=== PATIENT | female | born 1965 | race Caucasian/White ===

== ENCOUNTER 2018-04-05 02:10 | Inpatient (IN) | payer MEDICARE ==
[~2018-04-05] VITALS: Ht 147.3 cm
--- NOTE | ~2018-04-05 | CN ---
PATIENT NAME:JARED PETERSON MEDICAL RECORD: [id number] : 67 LOCATION:[id number] ADMIT DATE: 04/05/18 ACCOUNT: [id number] CONSULTING PHYSICIAN: MARY GATICA MD REFERRING PHYSICIAN: KIMANI GRESHAM MD DATE OF CONSULTATION: 04/07/2018 CONSULT REQUESTING PHYSICIAN: Kimani Gresham MD REASON FOR CONSULTATION: Vent management and septic shock. HISTORY OF PRESENT ILLNESS: Ms. Peterson is a 52-year-old female who underwent an exploratory laparotomy, ureterostomy, and stent placement and reduction of the incarcerated hernia. Now, the patient is orally intubated and sedated. She is hypotensive. She required 2 pressors. The history was taken mainly by reviewing the patient's note and talking to Dr. Gresham. REVIEW OF SYSTEMS: The detail is not obtainable. PAST MEDICAL HISTORY: 1. Seizure disorder. 2. Mental disability. 3. Spina bifida. 4. Hypertension. 5. Pressure sore stage 2-3 in the buttocks. 6. Depression. PAST SURGICAL HISTORY: She has ureterostomy and cystoscopy in the past. ALLERGIES: SHE IS ALLERGIC TO PENICILLIN. MEDICATIONS: She is on gentamicin IV, Flagyl IV, Levaquin IV, vancomycin IV. PERSONAL AND SOCIAL HISTORY: The patient is a nonsmoker, nondrinker. FAMILY HISTORY: Noncontributory. PHYSICAL EXAMINATION: GENERAL: Now, the patient is orally intubated and sedated. VITAL SIGNS: The blood pressure is 64-100/58, pulse is 75, respiration is 10, temperature 99.3, SpO2 98%. She is on assist control mechanical ventilation. HEENT: Conjunctivae are pink. Sclerae are not icteric. NECK: Supple, no JVD. CHEST: There is no wheeze. There are crackles at the left base. HEART: Rhythm regular, normal sound, no murmur. ABDOMEN: Not distended. It is tender on palpation. There is a drainage tube in place in incision. EXTREMITIES: No cyanosis, no clubbing and 1+ pedal edema. CENTRAL NERVOUS SYSTEM: The patient is orally intubated and sedated. LABORATORY DATA: CBC: The WBC is 23.4, hemoglobin 10.8, hematocrit is 34.9, the platelet count 416. Chemistry: Sodium is 154, potassium is 3.7, chloride 122, BUN is 24, creatinine 0.8. CHEST RADIOGRAPH: There is an infiltrate in the left lower lobe. There is also CONSULT REPORT [id number] JARED PETERSON a left-sided pleural effusion. IMPRESSION: 1. Acute hypoxic respiratory failure post-procedure. 2. Status post exploratory laparotomy, partial colectomy, reduction of the incarcerated hernia, ureterostomy, and stent placement. 3. Ileal conduit. 4. Septic shock. 5. Leukocytosis. 6. Left lower lobe pneumonia. 7. Left pleural effusion. 8. Hypernatremia. 9. Spina bifida. 10. Seizure disorder. RECOMMENDATION: 1. Continue the present pressors. We will add sil if the patient is still hypotensive. 2. IV fluid boluses. 3. Continue present antibiotic, vancomycin, gentamicin, Flagyl, and Levaquin. 4. DVT and GI prophylaxis. 5. Follow up labs and chest radiograph. Discussed with RN and RT. 6. Discussed with Dr. Gresham. The prognosis is guarded. The critical care time is 55 minutes. TRANSINT:[id number] Voice Confirmation ID: [id number] DOCUMENT ID: [id number] MARY GATICA MD at 1712 CC: [id number] DICTATION DATE: 04/07/18 1317 CRANE HOOKER: 04/07/18 1517 DIS IN 04/16/18 [place] [id number] [place] [address]
--- NOTE | ~2018-04-05 | MORECARE ---
CASE MANAGEMENT DISCHARGE SUMMARY PATIENT: JARED CHRISTIAN UNIT: [id number] ADM DATE: 04/05/18 AGE: 52 : 67 SEX: F ROOM/BED: D.2214 AUTHOR: MARIA A JOSHI PHYSICIAN: REFERRING PHYSICIAN: FLORIDALMA CONOEY MD DATE OF SERVICE: 04/05/18 Discharge Plan Patient Name: JARED CHRISTIAN Facility: [facility]:[place] : 1965 Planned Disposition: Anticipated Discharge Date: Discharge Date: Expected LOS: Initial Reviewer: [email or web address] Initial Review Date: 04/05/2018 Generated: 04/05/18 5:57 pm Patient Name: JARED CHRISTIAN Page [id number] at 1658 All edits/amendments must be made on the electronic document DICTATION DATE: 04/05/181656 [place] OPERATOR: ERIC 04/05/181656 RPT#: [id number] DC DATE: STATUS: ADM IN [facility] [address] [place] [address] END OF REPORT
--- NOTE | ~2018-04-05 | OP ---
PATIENT NAME: JARED CHRISTIAN MEDICAL RECORD: [id number] :67 LOCATION: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 PROCEDURES: 1. Exploratory laparotomy, lysis of adhesions. 2. Reduction of bowel incarceration with resection of sigmoid colon and creation of an end colostomy. 3. Repair of parastomal hernia. 4. Excision of previous ileal conduit. 5. Creation of a new ileal conduit with placement of bilateral ureteral stents. 6. Debridement of the buttocks decubitus ulcer. FINDINGS: Parastomal hernia with incarceration and necrosis of the sigmoid colon to the hernia, also the ileal conduit had necrosis due to obstruction of the blood supply. Sacral decubitus ulcer in the buttocks times 3, stage IV. BLOOD LOSS: Less than 100 mL. CLINICAL HISTORY: This is a 52-year-old female, who lives in a mcc in [place]. She has spina bifida, mental retardation and seizure disorder. She is sent by her mcc to this hospital because of anuria. When I saw the patient, I asked for a CT scan of the abdomen and pelvis as it was not entirely clear to me what her anatomy was internally. When I examined the patient, she had a necrotic-appearing ileostomy stoma. I called Dr. Cobb with concerns regarding bowel. The patient had been eating during her hospital stay. We examined the CT together, it was evident that she had incarceration of a loop of colon through the parastomal hernia and this colon incarceration was causing a large bowel obstruction. Also seemed that the incarcerated bowel is compressing on the ileal conduit. The patient had a very distended abdomen with minimal bowel sounds. However, she does not have any acute peritonitis. In fact, she was singing songs and generally not in any great degree of pain. Her blood work was terrible. She had a very high white blood cell count in the 25 range. Her creatinine was normal. Her lactate was elevated. Nevertheless, because of our suspicions that she had incarcerated and probably bowel in the abdomen, she needs to have an exploratory laparotomy and resection of any bowel. She cannot give consent because she is not mentally competent. Her brother who has power of assistant prosecuting attorney drove up from [place]. He gave consent for the surgery. She is DNR in the mcc. The brother signed DNR papers here and he also asked for a DNR in the operating room if necessary. DESCRIPTION OF PROCEDURE: The patient was first placed in the OR in supine position. I examined her while she was in supine position. I noticed that she has some decubitus ulcers. We would address this at the end of the case. She is very small in stature and has a very short neck. She was a difficult OPERATIVE REPORT [id number] JARED CHRISTIAN for anesthesia. Once induced, she needed to be on a Levophed drip in order to maintain her blood pressure. On the floor, her heart rate had been 140 and her blood pressure was in the low normal range. This was consistent with sepsis. Also, Dr. Cobb inserted a right subclavian central line into the patient. An art-line was placed by anesthesia. The patient was then prepped and draped. An Ioban drape was placed over the abdomen. We reentered her previous incision, which is in the midline. We then went down through the adhesions and into the peritoneal cavity. We had difficulty identifying the ileal conduit. We finally saw a structure that was dark and appeared to have a very thin bowel wall. I placed a red rubber catheter into the ileal conduit and we identified this as the ileal conduit. Adjacent to it was a loop of bowel, which was going through the parastomal hernia. Multiple adhesions had already formed here, indicating that this herniation and incarceration is chronic. These adhesions were all taken down. Finally, we were able to completely reduce the incarceration and the entrapped sigmoid colon was brought back into the abdominal cavity. We found that the bowel was . We decided to resect the necrotic sigmoid colon. The mesentery was ligated serially. We then used the Endo-JAS 75 stapler with blue staple loades, then resected the colon. The specimen was sent off to pathology. We kept the proximal end of the colon closed for the time being until we decided what to do with the ileal conduit. We then excised the stoma of the ileal conduit by doing a circumscribing incision using the Bovie around the stoma. We dissected around the ileal conduit in the subcutaneous tissues down to the fascia. All of the ileal conduit was necrotic. We could not find any viable ileal conduit. We excised the ileal conduit where it passed through the fascia. This allowed us to see the big opening for the parastomal hernia. The ileal conduit was then brought into the abdominal cavity. We followed it down and we identified the 2 ureters. The 2 ureters were marked individually with 2-0 polypropylene sutures. The 2 ureters were then excised using Encinas scissors where they were anastomosed on to the necrotic ileal conduit. The entire ileal conduit was . We took down the mesentery of the ileal conduit to viable tissue and ligated the mesentery using little mesenteric windows which were serially ligated. The ileal conduit specimen was then completely removed and sent to pathology in a separate container. The 2 ureters showed good urinary drainage, especially the right ureter showed an excellent vigorous urinary drainage. The left ureter was a little bit more sluggish in expressing urine. We now had to create a new ileal conduit for the patient. We ran the bowel and identified the ileocecal junction. We then ran the bowel at least 1 foot distal to this point in order to leave enough terminal ileum for vitamin B12 absorption. We then identified a length of about 15 cm of ileum, which the mesentery allowed the bowel to reach to the abdominal surface. We then marked our proximal and distal ends of resection with 3-0 silk sutures. Mesenteric windows were made and all the mesentery on either side of the windows was ligated using 3-0 silks. The distal end had a longer mesenteric window as it would have to extend through the abdominal wall. The proximal end had a relatively small mesenteric window. The Endo-JAS-75 were then used to transect the ileal conduit loop on either side. This loop was then allowed to fall inferiorly. We would reapproximate OPERATIVE REPORT [id number] JARED CHRISTIAN the small bowel cranially. This was done using Endo-JAS and a TA 30 stapler. Lembert sutures were used to reinforce the small bowel anastomosis. With the bowel back in continuity, the mesenteric defect was closed using simple interrupted 3-0 Vicryls. I then used a 3-0 Vicryl in a running horizontal mattress suture to exclude the staple line from contact with the urine. We then created a new stoma. The previous stoma was in the left lower quadrant of the abdomen. We decided to use that site for the new colostomy. In the right lower quadrant, we would create a new ileal conduit stoma. The skin in this region was lifted up and a #10 blade was used to make the stoma. We made an opening in the fascia in cruciate form. The distal end of the ileal conduit was then brought out through this stoma. It still was closed with a staple line. We decided to prepare for the anastomosis of the ureters. The ureters were spatulated for a distance of about 5-mm. The distal end of the ileal conduit was then opened up by cutting off the stapled portion of the bowel. This allowed the lumen to be accessible. A 3-0 silk suture was placed full-thickness at the proximal end of the ileal conduit and a small full-thickness opening was made in the proximal end of the conduit for anastomosis with the ureter. Using a tonsil clamp coming from the stoma, we managed to get the tip of the tonsil clamp to exit the opening for the ureteral anastomosis. A 6 x 28 cm ureteral double J stents were placed on the guidewire. The proximal end was placed up into the kidney through the cut end of the ureter. The distal end of the wire was placed into the tonsil clamp jaw and the tonsil clamp was then entirely withdrawn in order to allow the ureteral stent enter into the ileal conduit. The string on the distal end of the stents was maintained so that we can remove it in the future without instrumentation. Once the stent was in correct position, the Sensor wire was completely withdrawn. The ureter and the bowel were then brought into close approximation. A 4-0 Monocryl sutures were used. They were placed full-thickness at the apex of the ureteral incision. They were placed from outside in. They then went inside out on the bowel at the corresponding apical location. These sutures once placed, we then tied down. They were then run on each side in running fashion and finally tied to itself at the other apex of the ureteral anastomosis. This procedure was done for both ureters. Thus, we have 2 separate ureteral anastomosis. There are 2 ureteral stents. The stent from the right side was actually a bit too long. Therefore, I cut off the distal coil portion of the ureteral stent. It does stick out from the ileal conduit. The conduit stoma was then matured using simple interrupted 4-0 Vicryl sutures. This completed the ileal conduit creation. The descending colon was brought through its colostomy site. A suture repair of the parastomal hernia defect was made. 0 prolene sutures were used to close the fascial defect. Then, the colon was brought through. Once the colon was opened up, it actually started to defecate quite profusely due to resolution of the bowel obstruction. The colostomy was matured using 4-0 Vicryl. Once we had covered the abdomen up again and had new gowns and gloves, we irrigated out the abdomen with normal saline. A Khoa-Mckinley #10 drain was placed in the right upper quadrant of the abdomen. It was placed towards the region of the ileal conduit ureteral anastomosis, but not directly on the anastomosis. The ANURADHA drain was brought through using a tonsil clamp. It was sutured to the skin using a 2-0 nylon. The ANURADHA drain was cut somewhat shorter about half of the internal length and cut shorter externally on the tubing. It was put to bulb drainage eventually. Once the abdomen was irrigated out, the rectus fascia was reapproximated using 0 OPERATIVE REPORT [id number] JARED CHRISTIANed PDS. The abdomen was then closed using brigida. Stoma appliances were placed on the colostomy and on the urostomy. Right buttock decubitus ulcers: I pulled the patient over lateral decubitus position and I held the patient while Dr. Cobb managed to debride her decubitus ulcers on the right buttock. They are full thickness in depth. They were actually contaminated with feces. We cleaned them out and debrided necrotic tissue from then. I will get wound care to see the patient in consultation to attend to this. These are preexisting decubitus ulcers from the mcc. At this point, it is doubtful that we can extubate the patient as her tidal volume when breathing on her own is only 80 mL. She is on 7 mcg per minute of Levophed still. She will be transferred to the intensive care unit. The patient also has that an NG tube placed in during the surgery. TRANSINT:[id number] Voice Confirmation ID: [id number] DOCUMENT ID: [id number] KELECHI STAPLES MD at 0917 CC: [id number] DICTATION DATE: 04/06/181937 CRIMINAL LAWYER: 04/06/182114 ADM [place] [id number] [place] [id number]
--- NOTE | ~2018-04-05 | MORECARE ---
CASE MANAGEMENT DISCHARGE SUMMARY PATIENT: JARED CHRISTIAN UNIT: [id number] ADM DATE: 04/05/18 AGE: 52 : 67 SEX: F ROOM/BED: D.2214 AUTHOR: MARIA A JOSHI PHYSICIAN: REFERRING PHYSICIAN: FLORIDALMA COONEY MD DATE OF SERVICE: 04/05/18 Discharge Plan Patient Name: JARED CHRISTIAN Facility: [facility]:[place] : 1965 Planned Disposition: Anticipated Discharge Date: Discharge Date: Expected LOS: Initial Reviewer: [email or web address] Initial Review Date: 04/05/2018 Generated: 04/05/18 6:04 pm Comments DCP- Discharge Planning Updated by [email or web address]: Jennifer [place] on 04/05/18 4:[address] PATIENT IS A RESIDENT AT [facility] IN [place], [place]. HER BROTHER AND FAMILY ARE REPORTEDLY ON THEIR WAY TO THE HOSPITAL. ROCKY CHRISTIAN- BROTHER- [phone] [facility] - [phone] CM SPOKE WITH MARIXA AT [place]. SHE CONFIRMS #1 EMERGENCY CONTACT ROCKY CHRISTIAN AND #2 EMERGENCY CONTACT KARLI WALDEN -FULL MOTHER- [phone]. PATIENT CANNOT PROVIDE INFORMATION AT THIS TIME. CM WILL FOLLOW TO ASSIST. UROLOGY AND GENERAL SURGERY CONSULTS. POSSIBLE SURGERY PENDING. Last DP export: 04/05/18 3:57 Patient Name: JARED CHRISTIAN Page 01011 at 1704 All edits/amendments must be made on the electronic document DICTATION DATE: 04/05/181703 HEEL SEAT TRIMMER: ERIC 04/05/181703 RPT#: [id number] DC DATE: STATUS: ADM IN [facility] [address] [place] [address] END OF REPORT
--- NOTE | ~2018-04-05 | MORECARE ---
CASE MANAGEMENT DISCHARGE SUMMARY PATIENT: JARED CHRISTIAN UNIT: [id number] ADM DATE: 04/05/18 AGE: 52 : 67 SEX: F ROOM/BED: D.2303 AUTHOR: MARIA A JOSHI PHYSICIAN: REFERRING PHYSICIAN: FLORIDALMA COONEY MD DATE OF SERVICE: 04/16/18 Discharge Plan Patient Name: JARED CHRISTIAN Facility: [facility]:[place] : 1965 Planned Disposition: Anticipated Discharge Date: Discharge Date: Expected LOS: Initial Reviewer: [email or web address] Initial Review Date: 04/05/2018 Generated: 04/16/18 3:14 pm Comments DCP- Discharge Planning Updated by [email or web address]: Jennif[place]heldon [place] on 04/05/18 4:[address] PATIENT IS A RESIDENT AT [facility] IN [place], [place]. HER BROTHER AND FAMILY ARE REPORTEDLY ON THEIR WAY TO THE HOSPITAL. ROCKY CHRISTIAN- BROTHER- [phone] [facility] - [phone] CM SPOKE WITH MARIXA AT [place]. SHE CONFIRMS #1 EMERGENCY CONTACT ROCKY CHRISTIAN AND #2 EMERGENCY CONTACT KARLI WALDEN -FULL MOTHER- [phone]. PATIENT CANNOT PROVIDE INFORMATION AT THIS TIME. CM WILL FOLLOW TO ASSIST. UROLOGY AND GENERAL SURGERY CONSULTS. POSSIBLE SURGERY PENDING. External Providers External Provider: [facility] [facility] Next Contact Date: Service Request Date: Service Type: Resolution: Reviewer: Comments: Last DP export: 04/05/18 4:04 Patient Name: JARED CHRISTIAN Page 07180 at 1414 All edits/amendments must be made on the electronic document DICTATION DATE: 04/16/181413 EMBOSSING CLERK: ERIC 04/16/181413 RPT#: [id number] DC DATE: STATUS: ADM IN [facility] [address] [place] [address] END OF REPORT
--- NOTE | ~2018-04-05 | MORECARE ---
CASE MANAGEMENT DISCHARGE SUMMARY PATIENT: JARED CHRISTIAN UNIT: [id number] ADM DATE: 04/05/18 AGE: 52 : 67 SEX: F ROOM/BED: D.2303 AUTHOR: MARIA A JOSHI PHYSICIAN: REFERRING PHYSICIAN: FLORIDALMA COONEY MD DATE OF SERVICE: 04/16/18 Discharge Plan Patient Name: JARED CHRISTIAN Facility: [facility]:[place] : 1965 Planned Disposition: Anticipated Discharge Date: Discharge Date: 04/16/2018 Expected LOS: Initial Reviewer: [email or web address] Initial Review Date: 04/05/2018 Generated: 04/16/18 6:25 pm Comments DCP- Discharge Planning Updated by [email or web address]: Shae Lima on 04/16/18 4:[address] CM received call to set up Hospice. [facility] was notified and papers faxed. CM will continue to follow and assist as needed. DCP- Discharge Planning Updated by [email or web address]: Jennifer Gonazlez on 04/05/18 4:[address] PATIENT IS A RESIDENT AT [facility] IN [place], [place]. HER BROTHER AND FAMILY ARE REPORTEDLY ON THEIR WAY TO THE HOSPITAL. ROCKY CHRISTIAN- BROTHER- [phone] [facility] - [phone] CM SPOKE WITH MARIXA AT [place]. SHE CONFIRMS #1 EMERGENCY CONTACT ROCKY CHRISTIAN AND #2 EMERGENCY CONTACT KARLI WALDEN -FULL MOTHER- [phone]. PATIENT CANNOT PROVIDE INFORMATION AT THIS TIME. CM WILL FOLLOW TO ASSIST. UROLOGY AND GENERAL SURGERY CONSULTS. POSSIBLE SURGERY PENDING. Last DP export: 04/16/18 1:14 Patient Name: JARED CHRISTIAN Page [id number] at 5592 All edits/amendments must be made on the electronic document DICTATION DATE: 04/16/181724 CREDIT REVIEW ANALYST: ERIC 04/16/18 172 RPT#: [id number] DC DATE:11/21/18 STATUS: DIS IN [facility] [address] [place] [address] END OF REPORT
--- NOTE | ~2018-04-05 | OP ---
PATIENT NAME: JARED CHRISTIAN MEDICAL RECORD: [id number] :67 LOCATION:.[facility] [id number] ADMISSION DATE:04/05/18 SURGEON: MANUEL MARTINEZ MD DATE OF OPERATION: 04/06/2018 PREOPERATIVE DIAGNOSES: 1. Parastomal hernia. 2. Large bowel obstruction secondary to parastomal hernia. 3. 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 4. Sepsis. 5. Septic shock. 6. Spina bifida. POSTOPERATIVE DIAGNOSES: 1. Parastomal hernia. 2. Large bowel obstruction secondary to parastomal hernia. 3. 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 4. Sepsis. 5. Septic shock. 6. Spina bifida. PROCEDURES: 1. Exploratory lap with lysis of adhesions. 2. Reduction of parastomal hernia with primary repair without mesh. 3. Resection of necrotic ileal conduit. 4. Partial large bowel resection of the sigmoid colon with end colostomy (Hartmanns procedure) 5. Replacement of ileal conduit. 6. End colostomy. 7. Left subclavian vein central venous line placement. 8. Debridement of sacral decubitus. SURGEON: Manuel Martinez MD COSURGEON: Benji Sahni MD REPORT OF PROCEDURE: The patient's left neck and left chest were prepped and draped in sterile fashion. Attempts were made to access the left internal jugular vein using ultrasound guidance, we were able to access the vessel, but never able to pass a wire. We eventually stopped this and performed a left subclavian vein line placement. We were able to access the left subclavian vein and a guidewire was advanced with ease. Over this wire, a dilator was placed followed by the double-lumen catheter. This was sutured into place with 3-0 silk ties and dressed appropriately. It flushed easily with normal saline. We then prepped and draped the abdomen in sterile fashion. A midline incision was performed. The patient had a large amount of adhesions present in the abdominal cavity and in over about a 30-minute time, we are able to take these adhesions down and eventually got over to the indwelling ileal conduit. The patient was noted to have a parastomal hernia with what appeared to be the distal descending colon and proximal sigmoid colon present within it. When we were able to finally reduce this completely, it was noted to have some areas of necrosis. The mesentery had some thrombus within it. We went ahead and performed an excision of probably the distal half to a third of the descending colon and the entire sigmoid colon. This was done using 75 blue load OPERATIVE REPORT [id number] JARED CHRISTIAN JAS staplers. The mesentery was taken down with sequential clamp and tie technique with 3-0 silks. The patient's indwelling ileostomy was then dissected free from the scan as we dissected down over the ileostomy. There was noted to be complete necrosis of the tissue all the way through its entirety. We eventually were able to dissect this completely out and resected from the 2 ureters. The piece of bowel that was removed with the vessels was noted to be thrombosed. The vessels were clamped and tied off with 3-0 silks. Once we had this completely excise, then we pulled up a loop of small bowel and it was a stapled off on each end for a total of about 15 cm using a 75 blue load JAS stapler. The mesentery was taken down with sequential clamp and tie technique using a nice vascular pedicle. The proximal portion was brought down to the 2 ureter ends and at this point, Dr. Sahni positioned stents through the bowel and into the ureters and we sutured the 2 ureters to the proximal portion of the small bowel. The distal portion of the small bowel was then brought through the abdominal wall as an ileostomy. The 2 ends of the patient's small bowel were then reapproximated in a [id number] fashion using a 75 blue load JAS stapler and the enterotomies were closed with a 30 blue load TA stapler. We oversewed the staple line using lemberted 3-0 silks. We then inspected the abdominal cavity and there were a few deserosalized areas of small bowel, which were oversewn with lemberted 3-0 silks. We irrigated out the abdomen thoroughly with normal saline. There was no sign of any active bleeding and NG tube was placed and noted to be in good position in the stomach. We then used the previous ileostomy site opening to use as an end colostomy. The distal portion of the colon was brought out through this and opened up into the lumen. We reapproximated the fascial edges of the medial aspect of the stomal opening using interupted O Prolenes. This closed nicely around the colostomy. We attempted a brooked colostomy. There was a lot of tension to the colon and due to the fact that it had been obstructed there was a lot of fecal material that kept running out into the wound. We tried to keep this clean as possible and eventually we were able to bring up the colostomy to the skin. The ileostomy had been brought out through the right lower quadrant about the level of the umbilicus. This was matured in a brooking fashion again using 4-0 Vicryls. At this point, we placed a 10 flat ANURADHA drain through the right upper quadrant abdominal wall and rested down towards the suprapubic region and pelvis. This was sutured into place with 4-0 nylon. The midline fascia was then closed with a running #1 looped PDS times 2. The midline incision was then closed with brigida. We then flipped the patient on her left side, inspected the patient's area of decubitus ulcers. The patient had 2 very deep right ischial ulcers, which ran at least 6 cm or more into the underlying tissue. There was noted to be some fecal material at the most superior of these. The patient also had an area of necrotic tissue over the sacrum. We performed a sharp excisional debridement of this tissue down to the underlying fatty tissue. There was some bleeding from the tissue at this point and this was treated with electrocautery. We then treated all these areas with 4 x 4s, ABDs, and tape. COMPLICATIONS: None. CONDITION: Critical. ANESTHESIA: General endotracheal. BLOOD LOSS: Less than 100 mL. TRANSINT:[id number] Voice Confirmation ID: [id number] DOCUMENT ID: [id number] OPERATIVE REPORT [id number] JARED CHRISTIAN CHRISTIAN MD at 1217 CC: [id number] DICTATION DATE: 04/06/181917 FIRE SAFETY DIRECTOR: 04/06/182017 ADM IN [facility] [address] [place] [address]
[2018-04-05] MEDS ORDERED: MIRALAX17 GM PO (04:01)
[2018-04-05] MEDS ORDERED: REMERON15 MG PO (04:01)
[2018-04-05] MEDS ORDERED: K-TAB10 MEQ PO (04:02)
[2018-04-05] MEDS ORDERED: PROSTAT PO (04:04)
[2018-04-05] MEDS ORDERED: SENNA8.8 MG/5 M PO (04:06)
[2018-04-05] MEDS ORDERED: ZOLOFT50 MG PO (04:06)
[2018-04-05] MEDS ORDERED: ZOCOR20 MG PO (04:07)
[2018-04-05] MEDS ORDERED: KEPPRA500 MG PO (04:08)
[2018-04-05] MEDS ORDERED: K-PHOS ORIGINA500 MG PO (04:09)
[2018-04-05] MEDS ORDERED: PHENOBARBITAL32.4 MG PO (04:10)
[2018-04-05] MEDS ORDERED: ACETAMINOPHEN325 MG PO (04:12)
[2018-04-05] MEDS ORDERED: DIASTAT ACUDIAL10 MG RC (04:13)
[2018-04-05 04:48] VITALS: BP 142/91; BMI 26.6
[2018-04-05 09:18] VITALS: BP 109/73
[2018-04-05 09:33] LABS: HEMATOCRIT 38.6 % (36.0-48.0); HEMOGLOBIN 11.8 g/dL (12-16); MCH 31.2 pg (26.0-34.0); MCHC 30.6 g/dL (31.0-37.0); MCV 102.1 fL (80.0-100.0); MEAN PLATELET VOLUME 11.1 fL (7.4-10.4); PLATELET COUNT 503 10x3/uL (130-400); RBC 3.78 10x6/uL (4.00-5.40); RDW 14.9 % (11.5-14.5); WBC 23.5 10x3/uL (4.8-10.8)
[2018-04-05 09:48] LABS: ALBUMIN 1.8 g/dL (3.4-5.0); ALKALINE PHOSPHATASE 168 U/L (46-116); ALT (SGPT) 22 U/L (10-68); BILIRUBIN - TOTAL 0.13 mg/dL (0.2-1.3); CALC OSMOLALITY 302 mosm/kg (275-300); CALCIUM 8.6 mg/dL (8.5-10.1); CARBON DIOXIDE 28.9 mmol/L (21.0-32.0); CHLORIDE - SERUM 114 mmol/L (98-107); CREATININE - SERUM 0.6 mg/dL (0.6-1.3); GLUCOSE 121 mg/dL (74-106); POTASSIUM - SERUM 3.7 mmol/L (3.5-5.1); PROTEIN - SERUM 7.3 g/dL (6.4-8.2); SODIUM 149 mmol/L (136-145); THYROID STIMULATING HORMONE 0.61 uIU/mL (0.36-3.74); UREA NITROGEN 28 mg/dL (7-18); eGFR NON AFRICAN AMERICAN > 90 mL/min (90-120)
[2018-04-05 10:21] LABS: LYMPHOCYTES 6 % (15-50); MONOCYTES 4 % (2-11); NEUTROPHILS 79 % (40-80); PLATELET ESTIMATE INCREASED
[2018-04-05 12:03] VITALS: BMI 26.5
[2018-04-05 12:28] VITALS: BP 108/76
[2018-04-05 16:23] VITALS: Ht 147.3 cm
[2018-04-05 16:28] VITALS: BP 120/80
[2018-04-05 17:58] LABS: APPEARANCE CLOUDY (CLEAR); BILIRUBIN NEGATIVE (NEGATIVE); COLOR YELLOW (YELLOW); EPITHELIAL CELLS RARE /hpf (0-5); GLUCOSE NEGATIVE (NEGATIVE); KETONE NEGATIVE (NEGATIVE); NITRITE NEGATIVE (NEGATIVE); PROTEIN TRACE mg/dL (NEGATIVE); RED CELLS - URINE 0-5 /hpf (0-5); UROBILINOGEN NORMAL (NORMAL); WHITE CELLS - URINE NSEEN /hpf (0-5)
[2018-04-05 18:38] LABS: CALC OSMOLALITY 306 mosm/kg (275-300); CARBON DIOXIDE 26.6 mmol/L (21.0-32.0); CHLORIDE - SERUM 114 mmol/L (98-107); GLUCOSE 119 mg/dL (74-106); SODIUM 151 mmol/L (136-145); UREA NITROGEN 30 mg/dL (7-18)
[2018-04-05 18:43] LABS: CREATININE - SERUM 0.8 mg/dL (0.6-1.3); POTASSIUM - SERUM 4.5 mmol/L (3.5-5.1); eGFR NON AFRICAN AMERICAN 80 mL/min (90-120)
[2018-04-05 18:53] LABS: CALCIUM 12.8 mg/dL (8.5-10.1)
[2018-04-05 20:06] VITALS: BP 116/75
[2018-04-06] VITALS (16 sets, daily range): BP systolic 65–126; BP diastolic 37–80
[2018-04-06 06:47] LABS: BASOPHILS 0.1 % (0-2); EOSINOPHILS 0 % (0-7); HEMATOCRIT 39.6 % (36.0-48.0); HEMOGLOBIN 12.2 g/dL (12-16); IMMATURE GRANULOCYTES 0.3 % (0-5); LYMPHOCYTES 5.5 % (15-50); MCHC 30.8 g/dL (31.0-37.0); MCV 100.8 fL (80.0-100.0); MEAN PLATELET VOLUME 11.2 fL (7.4-10.4); MONOCYTES 6.7 % (2-11); NEUTROPHILS 87.4 % (40-80); PLATELET COUNT 503 10x3/uL (130-400); RBC 3.93 10x6/uL (4.00-5.40); RDW 15.3 % (11.5-14.5); WBC 24.9 10x3/uL (4.8-10.8)
[2018-04-06 06:54] LABS: CREATININE - SERUM 0.9 mg/dL (0.6-1.3)
[2018-04-07] VITALS (67 sets, daily range): BP systolic 63–107; BP diastolic 44–90
[2018-04-07 05:47] LABS: BASOPHILS 0 % (0-2); CALC OSMOLALITY 309 mosm/kg (275-300); CREATININE - SERUM 0.8 mg/dL (0.6-1.3); EOSINOPHILS 0 % (0-7); GLUCOSE 117 mg/dL (74-106); HEMATOCRIT 34.9 % (36.0-48.0); HEMOGLOBIN 10.8 g/dL (12-16); IMMATURE GRANULOCYTES 0.5 % (0-5); LYMPHOCYTES 5.5 % (15-50); MCH 30.9 pg (26.0-34.0); MCHC 30.9 g/dL (31.0-37.0); MEAN PLATELET VOLUME 10.7 fL (7.4-10.4); MONOCYTES 4.5 % (2-11); NEUTROPHILS 89.5 % (40-80); PLATELET COUNT 416 10x3/uL (130-400); POTASSIUM - SERUM 3.7 mmol/L (3.5-5.1); RBC 3.49 10x6/uL (4.00-5.40); RDW 15.5 % (11.5-14.5); SODIUM 154 mmol/L (136-145); TROPONIN-I < 0.017 ng/mL (0.000-0.060); UREA NITROGEN 24 mg/dL (7-18); WBC 23.4 10x3/uL (4.8-10.8); eGFR NON AFRICAN AMERICAN 80 mL/min (90-120)
[2018-04-07 05:53] LABS: CALCIUM 5.6 mg/dL (8.5-10.1); CARBON DIOXIDE 14.3 mmol/L (21.0-32.0); CHLORIDE - SERUM 122 mmol/L (98-107)
[2018-04-08] VITALS (77 sets, daily range): BP systolic 42–148; BP diastolic 34–94
[2018-04-08 06:36] LABS: BASOPHILS 0 % (0-2); EOSINOPHILS 0 % (0-7); HEMATOCRIT 25.1 % (36.0-48.0); IMMATURE GRANULOCYTES 0.7 % (0-5); LYMPHOCYTES 9.5 % (15-50); MCH 30.2 pg (26.0-34.0); MCHC 31.9 g/dL (31.0-37.0); MCV 94.7 fL (80.0-100.0); MEAN PLATELET VOLUME 10.8 fL (7.4-10.4); MONOCYTES 8.9 % (2-11); NEUTROPHILS 80.9 % (40-80); PLATELET COUNT 266 10x3/uL (130-400); RBC 2.65 10x6/uL (4.00-5.40); RDW 15.1 % (11.5-14.5); WBC 26.2 10x3/uL (4.8-10.8)
[2018-04-08 06:51] LABS: ALBUMIN 0.8 g/dL (3.4-5.0); ALKALINE PHOSPHATASE 83 U/L (46-116); ALT (SGPT) 16 U/L (10-68); BILIRUBIN - TOTAL 0.33 mg/dL (0.2-1.3); CHLORIDE - SERUM 113 mmol/L (98-107); CREATININE - SERUM 0.8 mg/dL (0.6-1.3); MAGNESIUM - SERUM 1.3 mg/dL (1.8-2.4); PROTEIN - SERUM 4.3 g/dL (6.4-8.2); SODIUM 151 mmol/L (136-145); UREA NITROGEN 22 mg/dL (7-18); eGFR NON AFRICAN AMERICAN 80 mL/min (90-120)
[2018-04-08 06:54] LABS: CALC OSMOLALITY 300 mosm/kg (275-300); CARBON DIOXIDE 21.8 mmol/L (21.0-32.0)
[2018-04-08 06:55] LABS: GLUCOSE 70 mg/dL (74-106)
[2018-04-08 06:56] LABS: CALCIUM 5.2 mg/dL (8.5-10.1); POTASSIUM - SERUM 2.8 mmol/L (3.5-5.1)
[2018-04-08 20:58] LABS: HEMOGLOBIN 11.7 g/dL (12-16)
[2018-04-09] VITALS (86 sets, daily range): BP systolic 78–119; BP diastolic 23–87
[2018-04-09 05:00] LABS: ALKALINE PHOSPHATASE 82 U/L (46-116); BILIRUBIN - TOTAL 0.66 mg/dL (0.2-1.3); CARBON DIOXIDE 23.2 mmol/L (21.0-32.0); CHLORIDE - SERUM 107 mmol/L (98-107); CREATININE - SERUM 0.7 mg/dL (0.6-1.3); MAGNESIUM - SERUM 1.1 mg/dL (1.8-2.4); PROTEIN - SERUM 4.7 g/dL (6.4-8.2); SODIUM 146 mmol/L (136-145); UREA NITROGEN 19 mg/dL (7-18); eGFR NON AFRICAN AMERICAN > 90 mL/min (90-120)
[2018-04-09 05:15] LABS: BASOPHILS 0.1 % (0-2); EOSINOPHILS 0 % (0-7); HEMATOCRIT 33.8 % (36.0-48.0); HEMOGLOBIN 11.7 g/dL (12-16); IMMATURE GRANULOCYTES 0.8 % (0-5); LYMPHOCYTES 5.4 % (15-50); MCH 30.8 pg (26.0-34.0); MCHC 34.6 g/dL (31.0-37.0); MCV 88.9 fL (80.0-100.0); MEAN PLATELET VOLUME 10.9 fL (7.4-10.4); NEUTROPHILS 87.7 % (40-80); PLATELET COUNT 187 10x3/uL (130-400); RDW 16.5 % (11.5-14.5); WBC 32.6 10x3/uL (4.8-10.8)
[2018-04-09 05:24] LABS: CALC OSMOLALITY 297 mosm/kg (275-300); GLUCOSE 189 mg/dL (74-106)
[2018-04-09 05:26] LABS: ALT (SGPT) 25 U/L (10-68); CALCIUM 5.2 mg/dL (8.5-10.1)
[2018-04-09 19:56] LABS: ALBUMIN 0.9 g/dL (3.4-5.0); ALKALINE PHOSPHATASE 71 U/L (46-116); ALT (SGPT) 25 U/L (10-68); CHLORIDE - SERUM 106 mmol/L (98-107); CREATININE - SERUM 0.7 mg/dL (0.6-1.3); GLUCOSE 223 mg/dL (74-106); PROTEIN - SERUM 4.5 g/dL (6.4-8.2); SODIUM 145 mmol/L (136-145); eGFR NON AFRICAN AMERICAN > 90 mL/min (90-120)
[2018-04-09 19:57] LABS: CALC OSMOLALITY 296 mosm/kg (275-300); MAGNESIUM - SERUM 1.6 mg/dL (1.8-2.4); UREA NITROGEN 14 mg/dL (7-18)
[2018-04-09 19:59] LABS: CALCIUM 5.4 mg/dL (8.5-10.1); CARBON DIOXIDE 31.9 mmol/L (21.0-32.0); POTASSIUM - SERUM 2.1 mmol/L (3.5-5.1)
[2018-04-10] VITALS (71 sets, daily range): BP systolic 77–101; BP diastolic 31–76
[2018-04-10 04:10] LABS: BASOPHILS 0.1 % (0-2); EOSINOPHILS 0.3 % (0-7); HEMATOCRIT 33.7 % (36.0-48.0); HEMOGLOBIN 11.8 g/dL (12-16); IMMATURE GRANULOCYTES 0.7 % (0-5); LYMPHOCYTES 9.8 % (15-50); MCH 31.1 pg (26.0-34.0); MCV 88.7 fL (80.0-100.0); MEAN PLATELET VOLUME 10.5 fL (7.4-10.4); MONOCYTES 3.9 % (2-11); NEUTROPHILS 85.2 % (40-80); PLATELET COUNT 159 10x3/uL (130-400); RDW 16.1 % (11.5-14.5); WBC 26.4 10x3/uL (4.8-10.8)
[2018-04-10 04:28] LABS: ALBUMIN 0.9 g/dL (3.4-5.0); ALKALINE PHOSPHATASE 71 U/L (46-116); ALT (SGPT) 26 U/L (10-68); CARBON DIOXIDE 30.9 mmol/L (21.0-32.0); CHLORIDE - SERUM 105 mmol/L (98-107); CREATININE - SERUM 0.7 mg/dL (0.6-1.3); PROTEIN - SERUM 4.5 g/dL (6.4-8.2); SODIUM 143 mmol/L (136-145); UREA NITROGEN 13 mg/dL (7-18); eGFR NON AFRICAN AMERICAN > 90 mL/min (90-120)
[2018-04-10 04:45] LABS: CALC OSMOLALITY 288 mosm/kg (275-300); GLUCOSE 164 mg/dL (74-106)
[2018-04-10 04:47] LABS: CALCIUM 5.5 mg/dL (8.5-10.1); POTASSIUM - SERUM 2.8 mmol/L (3.5-5.1)
[2018-04-11] VITALS (65 sets, daily range): BP systolic 51–98; BP diastolic 35–83
[2018-04-11 05:40] LABS: BASOPHILS 0.2 % (0-2); EOSINOPHILS 1.2 % (0-7); HEMATOCRIT 36.6 % (36.0-48.0); HEMOGLOBIN 12.3 g/dL (12-16); IMMATURE GRANULOCYTES 0.8 % (0-5); MCH 30.5 pg (26.0-34.0); MCHC 33.6 g/dL (31.0-37.0); MCV 90.8 fL (80.0-100.0); MONOCYTES 2.6 % (2-11); NEUTROPHILS 81.2 % (40-80); PLATELET COUNT 164 10x3/uL (130-400); RBC 4.03 10x6/uL (4.00-5.40); RDW 15.5 % (11.5-14.5); WBC 17.7 10x3/uL (4.8-10.8)
[2018-04-11 06:05] LABS: ALBUMIN 0.8 g/dL (3.4-5.0); ALKALINE PHOSPHATASE 70 U/L (46-116); ALT (SGPT) 25 U/L (10-68); BILIRUBIN - TOTAL 0.54 mg/dL (0.2-1.3); CARBON DIOXIDE 35.4 mmol/L (21.0-32.0); CHLORIDE - SERUM 109 mmol/L (98-107); CREATININE - SERUM 0.6 mg/dL (0.6-1.3); MAGNESIUM - SERUM 1.5 mg/dL (1.8-2.4); POTASSIUM - SERUM 3.1 mmol/L (3.5-5.1); PROTEIN - SERUM 4.3 g/dL (6.4-8.2); SODIUM 147 mmol/L (136-145); eGFR NON AFRICAN AMERICAN > 90 mL/min (90-120)
[2018-04-11 06:07] LABS: CALC OSMOLALITY 291 mosm/kg (275-300); GLUCOSE 115 mg/dL (74-106); UREA NITROGEN 9 mg/dL (7-18)
[2018-04-12] VITALS (59 sets, daily range): BP systolic 43–107; BP diastolic 20–85
[2018-04-12 05:17] LABS: BASOPHILS 0.1 % (0-2); EOSINOPHILS 1.5 % (0-7); HEMATOCRIT 37.1 % (36.0-48.0); HEMOGLOBIN 12.5 g/dL (12-16); LYMPHOCYTES 12.4 % (15-50); MCH 30.9 pg (26.0-34.0); MCHC 33.7 g/dL (31.0-37.0); MCV 91.6 fL (80.0-100.0); MEAN PLATELET VOLUME 11.1 fL (7.4-10.4); PLATELET COUNT 175 10x3/uL (130-400); RBC 4.05 10x6/uL (4.00-5.40); RDW 15.1 % (11.5-14.5); WBC 20.3 10x3/uL (4.8-10.8)
[2018-04-12 05:33] LABS: ALBUMIN 0.7 g/dL (3.4-5.0); ALKALINE PHOSPHATASE 76 U/L (46-116); ALT (SGPT) 23 U/L (10-68); BILIRUBIN - TOTAL 0.57 mg/dL (0.2-1.3); CALC OSMOLALITY 293 mosm/kg (275-300); CARBON DIOXIDE 30.8 mmol/L (21.0-32.0); CHLORIDE - SERUM 110 mmol/L (98-107); CREATININE - SERUM 0.6 mg/dL (0.6-1.3); GLUCOSE 126 mg/dL (74-106); MAGNESIUM - SERUM 1.3 mg/dL (1.8-2.4); PROTEIN - SERUM 4.4 g/dL (6.4-8.2); SODIUM 148 mmol/L (136-145); UREA NITROGEN 7 mg/dL (7-18); VANCOMYCIN - RANDOM 17.6 ug/mL (10.0-20.0); eGFR NON AFRICAN AMERICAN > 90 mL/min (90-120)
[2018-04-12 05:42] LABS: CALCIUM 6.2 mg/dL (8.5-10.1); POTASSIUM - SERUM 3.6 mmol/L (3.5-5.1)
[2018-04-13] VITALS (87 sets, daily range): BP systolic 54–128; BP diastolic 21–83
[2018-04-13 04:50] LABS: BASOPHILS 0.1 % (0-2); EOSINOPHILS 1.5 % (0-7); HEMATOCRIT 36.6 % (36.0-48.0); HEMOGLOBIN 12.4 g/dL (12-16); IMMATURE GRANULOCYTES 0.9 % (0-5); LYMPHOCYTES 9.8 % (15-50); MCH 30.8 pg (26.0-34.0); MCHC 33.9 g/dL (31.0-37.0); MCV 90.8 fL (80.0-100.0); MEAN PLATELET VOLUME 11.9 fL (7.4-10.4); MONOCYTES 2.7 % (2-11); PLATELET COUNT 173 10x3/uL (130-400); RBC 4.03 10x6/uL (4.00-5.40); RDW 14.7 % (11.5-14.5)
[2018-04-13 05:09] LABS: ALBUMIN 0.8 g/dL (3.4-5.0); ALKALINE PHOSPHATASE 89 U/L (46-116); ALT (SGPT) 25 U/L (10-68); CALC OSMOLALITY 290 mosm/kg (275-300); CARBON DIOXIDE 30.7 mmol/L (21.0-32.0); CHLORIDE - SERUM 111 mmol/L (98-107); CREATININE - SERUM 0.6 mg/dL (0.6-1.3); GLUCOSE 109 mg/dL (74-106); PROTEIN - SERUM 4.7 g/dL (6.4-8.2); SODIUM 146 mmol/L (136-145); UREA NITROGEN 10 mg/dL (7-18); eGFR NON AFRICAN AMERICAN > 90 mL/min (90-120)
[2018-04-13 05:10] LABS: CALCIUM 6.6 mg/dL (8.5-10.1); POTASSIUM - SERUM 2.7 mmol/L (3.5-5.1)
[2018-04-14] VITALS (95 sets, daily range): BP systolic 51–113; BP diastolic 23–86
[2018-04-14 03:39] LABS: BASOPHILS 0 % (0-2); EOSINOPHILS 0.6 % (0-7); HEMATOCRIT 34.5 % (36.0-48.0); HEMOGLOBIN 11.5 g/dL (12-16); IMMATURE GRANULOCYTES 0.9 % (0-5); LYMPHOCYTES 9.2 % (15-50); MCH 30.1 pg (26.0-34.0); MCHC 33.3 g/dL (31.0-37.0); MCV 90.3 fL (80.0-100.0); MEAN PLATELET VOLUME 11.9 fL (7.4-10.4); MONOCYTES 4.1 % (2-11); NEUTROPHILS 85.2 % (40-80); PLATELET COUNT 175 10x3/uL (130-400); RBC 3.82 10x6/uL (4.00-5.40); RDW 14.7 % (11.5-14.5); WBC 27.1 10x3/uL (4.8-10.8)
[2018-04-14 03:54] LABS: ALBUMIN 0.7 g/dL (3.4-5.0); ALKALINE PHOSPHATASE 97 U/L (46-116); ALT (SGPT) 19 U/L (10-68); CALC OSMOLALITY 287 mosm/kg (275-300); CARBON DIOXIDE 25.2 mmol/L (21.0-32.0); CHLORIDE - SERUM 112 mmol/L (98-107); CREATININE - SERUM 0.7 mg/dL (0.6-1.3); GLUCOSE 103 mg/dL (74-106); POTASSIUM - SERUM 3.5 mmol/L (3.5-5.1); PROTEIN - SERUM 4.5 g/dL (6.4-8.2); SODIUM 144 mmol/L (136-145); eGFR NON AFRICAN AMERICAN > 90 mL/min (90-120)
[2018-04-14 04:03] LABS: UREA NITROGEN 14 mg/dL (7-18)
[2018-04-15] VITALS (67 sets, daily range): BP systolic 93–119; BP diastolic 60–90
[2018-04-15 05:44] LABS: HEMATOCRIT 32.3 % (36.0-48.0); HEMOGLOBIN 10.7 g/dL (12-16); MCH 29.7 pg (26.0-34.0); MCHC 33.1 g/dL (31.0-37.0); MCV 89.7 fL (80.0-100.0); MEAN PLATELET VOLUME 12.2 fL (7.4-10.4); PLATELET COUNT 132 10x3/uL (130-400); RDW 16.5 % (11.5-14.5); WBC 26.7 10x3/uL (4.8-10.8)
[2018-04-15 05:58] LABS: ALKALINE PHOSPHATASE 80 U/L (46-116); ALT (SGPT) 15 U/L (10-68); BILIRUBIN - TOTAL 1.69 mg/dL (0.2-1.3); CALC OSMOLALITY 296 mosm/kg (275-300); CALCIUM 7.4 mg/dL (8.5-10.1); CARBON DIOXIDE 22.2 mmol/L (21.0-32.0); CHLORIDE - SERUM 114 mmol/L (98-107); CREATININE - SERUM 0.6 mg/dL (0.6-1.3); GLUCOSE 103 mg/dL (74-106); PROTEIN - SERUM 4.8 g/dL (6.4-8.2); SODIUM 149 mmol/L (136-145); UREA NITROGEN 14 mg/dL (7-18); eGFR NON AFRICAN AMERICAN > 90 mL/min (90-120)
[2018-04-15 06:22] LABS: ALBUMIN 2.1 g/dL (3.4-5.0)
[2018-04-15 06:25] LABS: POTASSIUM - SERUM 2.5 mmol/L (3.5-5.1)
[2018-04-15 07:52] LABS: ANISOCYTOSIS OCC; CRENATED CELLS OCC; EOSINOPHILS 1 % (0-7); LYMPHOCYTES 4 % (15-50); MONOCYTES 10 % (2-11); NEUTROPHILS 82 % (40-80); PLATELET ESTIMATE NORMAL; SMUDGE CELLS OCC
[2018-04-16] VITALS (23 sets, daily range): BP systolic 75–121; BP diastolic 53–75
[2018-04-16 06:36] LABS: ALBUMIN 2.5 g/dL (3.4-5.0); ALKALINE PHOSPHATASE 73 U/L (46-116); CALC OSMOLALITY 294 mosm/kg (275-300); CALCIUM 7.6 mg/dL (8.5-10.1); CARBON DIOXIDE 17.6 mmol/L (21.0-32.0); CREATININE - SERUM 0.5 mg/dL (0.6-1.3); GLUCOSE 81 mg/dL (74-106); MAGNESIUM - SERUM 1.2 mg/dL (1.8-2.4); PROTEIN - SERUM 4.6 g/dL (6.4-8.2); SODIUM 149 mmol/L (136-145); UREA NITROGEN 12 mg/dL (7-18); eGFR NON AFRICAN AMERICAN > 90 mL/min (90-120)
[2018-04-16 06:38] LABS: BASOPHILS 0.1 % (0-2); EOSINOPHILS 0.4 % (0-7); HEMATOCRIT 29.7 % (36.0-48.0); HEMOGLOBIN 9.7 g/dL (12-16); IMMATURE GRANULOCYTES 0.9 % (0-5); MCH 29.6 pg (26.0-34.0); MCHC 32.7 g/dL (31.0-37.0); MCV 90.5 fL (80.0-100.0); MEAN PLATELET VOLUME 12.4 fL (7.4-10.4); MONOCYTES 8.1 % (2-11); NEUTROPHILS 83.5 % (40-80); PLATELET COUNT 119 10x3/uL (130-400); RBC 3.28 10x6/uL (4.00-5.40); RDW 17.4 % (11.5-14.5); WBC 21.8 10x3/uL (4.8-10.8)
[2018-04-16 07:17] LABS: ALT (SGPT) 10 U/L (10-68); POTASSIUM - SERUM 3.3 mmol/L (3.5-5.1)
[2018-04-16 07:19] LABS: CHLORIDE - SERUM 116 mmol/L (98-107); PHOSPHOROUS 1.2 mg/dL (2.5-4.9)
== END 2018-04-16 15:52 | disposition hospice, inpatient (51) | DRG 659 ==
LOC: D.MS 02:10 → D.ICU 03:15
PROVIDERS: Family Medicine; Internal Medicine Pulmonary Disease; Surgery; Thoracic Surgery (Cardiothoracic Vascular Surgery); Urology
PROC: 5A1955Z Respiratory Ventilation, Greater than 96 Consecutive Hours (ICD-10-PCS; 2018-04-06)
PROC: 0WQF0ZZ Repair Abdominal Wall, Open Approach (ICD-10-PCS; principal; 2018-04-06 11:00)
PROC: 0DTN0ZZ Resection of Sigmoid Colon, Open Approach (ICD-10-PCS; 2018-04-06 11:00)
PROC: 0JB90ZZ Excision of Buttock Subcutaneous Tissue and Fascia, Open Approach (ICD-10-PCS; 2018-04-06 11:00)
PROC: 0DSM0ZZ Reposition Descending Colon, Open Approach (ICD-10-PCS; 2018-04-06 11:00)
PROC: 0T780DZ Dilation of Bilateral Ureters with Intraluminal Device, Open Approach (ICD-10-PCS; 2018-04-06 11:00)
PROC: 05H633Z Insertion of Infusion Device into Left Subclavian Vein, Percutaneous Approach (ICD-10-PCS; 2018-04-06 11:00)
DX: N99.528 Other complication of incontinent external stoma of urinary tract (principal); L89.304 Pressure ulcer of unspecified buttock, stage 4; J18.9 Pneumonia, unspecified organism; A41.9 Sepsis, unspecified organism; R65.21 Severe sepsis with septic shock; J96.01 Acute respiratory failure with hypoxia; N13.30 Unspecified hydronephrosis; E87.0 Hyperosmolality and hypernatremia; J90 Pleural effusion, not elsewhere classified; K43.3 Parastomal hernia with obstruction, without gangrene; E87.2 Acidosis; K55.9 Vascular disorder of intestine, unspecified; N39.0 Urinary tract infection, site not specified; Z66 Do not resuscitate; Q05.9 Spina bifida, unspecified; F79 Unspecified intellectual disabilities; R33.9 Retention of urine, unspecified; R53.81 Other malaise; G40.909 Epilepsy, unspecified, not intractable, without status epilepticus; I10 Essential (primary) hypertension; E87.6 Hypokalemia; F32.9 Major depressive disorder, single episode, unspecified; M41.9 Scoliosis, unspecified; E78.5 Hyperlipidemia, unspecified; D64.9 Anemia, unspecified

== ENCOUNTER 2018-04-16 15:50 | Inpatient (IN) | payer OTHER ==
[~2018-04-16] VITALS: Ht 147.3 cm
[~2018-04-16 15:50] MED LIST: ACETAMINOPHEN325 MG PO; DIASTAT ACUDIAL10 MG RC; K-PHOS ORIGINA500 MG PO; K-TAB10 MEQ PO; KEPPRA500 MG PO; MIRALAX17 GM PO; PHENOBARBITAL32.4 MG PO; PROSTAT PO; REMERON15 MG PO; SENNA8.8 MG/5 M PO; ZOCOR20 MG PO; ZOLOFT50 MG PO
[2018-04-16 16:00] VITALS: BP 80/58
[2018-04-16 16:03] VITALS: BP 85/56; Ht 147.3 cm
[2018-04-16 17:00] VITALS: BP 61/44
[2018-04-16 18:00] VITALS: BP 62/45
[2018-04-17 04:00] VITALS: BP 72/38
[2018-04-17 07:15] VITALS: BP 100/39
[2018-04-17 19:39] VITALS: BP 57/21
== END 2018-04-17 21:20 | DRG 951 ==
LOC: D.ICU 15:50 → D.M3 19:34
DX: Z51.5 Encounter for palliative care (principal)